=== PATIENT | female | born 1940 | race Caucasian/White ===

== ENCOUNTER → 2016-10-28 | Outpatient (CLI) | payer MEDICARE, BC ==
[~2016-10-28] MED LIST: ANTIVERT PO; ASPIRIN81 M2 PO; B-121000 MC1 PO; CALTRATE 600+D PO; CELEBREX PO; DELTASONE20 MG PO; EVISTA60 M1 PO; EVISTA60 MG PO; FISH OIL 1,0001 CA2 PO; FRESHKOTE15 ML OU; HCTZ PO; HYDROCHLOROTH12.5 M1 PO; HYDROCODON-ACE1 EAC9 PO; LIDODERM30 EA TOP; LORCET 10-6501 EACH PO; NEURONTIN PO; NEXIUM PO; NORCO 10-325 TA1 TAB PO; ONDANSETRO4 MG/UDTAB PO; POSTURE600 MG PO; PROAIR HFA8.5 GM INH; PROMETHAZINE D118 ML PO; RESTASIS32 EA OU; SINGULAIR PO; STOOL SOFTENER250 MG PO; SYMBICORT INH; TOPROL XL PO; TUSSIONEX PENN473 ML PO; VICODIN PO; VITAMIN D2000 UNIT PO; ZITHROMAX PO
[2016-10-28 16:08] LABS: BUN/CREATININE RATIO 10.76; CALCIUM SERUM 9.2 mg/dL (8.4-10.2); CREATININE SERUM 1.3 mg/dL (0.6-1.4); GLOM FILT RATE Estimated 42.1 mL/min (>60); POTASSIUM 3.3 mmol/L (3.5-5.1)
== END | disposition home or self-care (01) ==
LOC: CAMB 13:53
PROVIDERS: Surgery
DX: Z01.812 Encounter for preprocedural laboratory examination (principal); K43.9 Ventral hernia without obstruction or gangrene
CPT/HCPCS: 36415; 80048

== ENCOUNTER → 2016-11-04 | Day surgery (SDC) | payer MEDICARE, BC ==
--- NOTE | ~2016-11-04 | EKG ---
PATIENT: MARLEN CARSON UNIT #: [id number] Ventricular Rate: 98 BPM Atrial Rate: 98 BPM P-R Interval: 172 ms QRS Duration: 74 ms Q-T Interval: 356 ms QTC Calculation(Bezet): 454 ms P [place]: 79 degrees Calculated R [place]: 56 degrees Calculated T [place]: 34 degrees Diagnosis Line: Sinus rhythm with Premature atrial complexes Diagnosis Line: Low voltage QRS Diagnosis Line: Borderline ECG Diagnosis Line: No previous ECGs available Diagnosis Line: Confirmed by SMITHA CROCKETT MD ([id number]) on 11/04/2016 Diagnosis Line: 11:04:18 PM INTERPRETING MD: KEIRA FRANCE
--- NOTE | ~2016-11-04 | OR ---
Unit #: [id number] #: [id number] Patient: MARLEN CARSON [id number] [address] [address] [id number] MR#: [id number] NAME: MARLEN CARSON. ROOM: Date of Procedure: 11/04/2016 Admission Date: 11/04/2016 Surgeon: Cortes Harris M.D. : 1940 Attending Physician: Cortes Harris M.D. Primary Care Physician: Bruce Abreu D.O. OPERATIVE REPORT PREOPERATIVE DIAGNOSIS Incarcerated incisional hernia. POSTOPERATIVE DIAGNOSIS Incarcerated incisional hernia of 3.5 cm in diameter. PROCEDURE PERFORMED Laparoscopic ventral hernia repair of incarcerated incisional hernia with 8 x 6 Ventralight mesh. [employer] [facility] None. ANESTHESIA General endotracheal anesthesia. ESTIMATED BLOOD LOSS Minimal. IV FLUIDS 800 crystalloid. COMPLICATIONS None. INDICATIONS FOR PROCEDURE The patient is a 76-year-old, who presents with status post colon resection who presents with a ventral hernia. DESCRIPTION OF PROCEDURE The patient was taken to the operating theater and placed in supine position. General anesthesia was induced. The abdomen was prepped and draped. A 5-mm Optiview trocar was placed in the left upper quadrant without difficulty. The abdomen was insufflated to 15 mmHg with CO2. Under direct vision, I placed left lower quadrant 10 mm, right upper quadrant 5 mm. General inspection of the abdomen revealed incarcerated hernia of 3.5 cm in diameter. This was reduced. Then I used an 8 x 6 Ventralight mesh. This was held in place with single-stranded Vicryl sutures and delivered transcutaneous. I then secured this with a stapling device. With each tag was 1.5 cm from previous tag. This covered the defect by at least 5 cm in all circumference. I did two circumferential rows. Hemostasis was adequate. I removed the ports under direct vision. Unit #: [id number] #: [id number] Patient: MARLEN CARSON The sutures were cut at skin level. The wound was closed with 4-0 Vicryl. The patient tolerated the procedure well and sent to the recovery room in good condition. Dictated by... Jovanni Lowe/keith TD: 11/05/2016 03:07 JOB #: [id number] OPERATIVE REPORT Page 1 of 1 X Cortes Harris MD PROCEDURE OPERATIVE NOTE
== END | disposition home or self-care (01) ==
LOC: CSUR 05:34
DX: K43.0 Incisional hernia with obstruction, without gangrene (principal); I10 Essential (primary) hypertension; K21.9 Gastro-esophageal reflux disease without esophagitis; M19.90 Unspecified osteoarthritis, unspecified site; Z88.2 Allergy status to sulfonamides; J42 Unspecified chronic bronchitis; Z79.82 Long term (current) use of aspirin; Z90.49 Acquired absence of other specified parts of digestive tract; Z85.3 Personal history of malignant neoplasm of breast
CPT/HCPCS: 84132; 93005; C1787; J0330; J0690; J1644; J2405; J2710; J3010